=== PATIENT | female | born 1950 | race Caucasian/White ===

== ENCOUNTER → 2018-01-11 10:42 | Outpatient (CLI) | payer MEDICARE, SELFPAY ==
[2018-01-11 13:03] LABS: Cholesterol 195 mg/dL (200); High Density Lipoprotein 58 mg/dL; T4 Total, Thyroxin 14.6 ug/dL (4.8-13.9); Triglycerides 78 mg/dL; Very Low Density Lipoprotein 16 mg/dL (5-40)
[2018-01-13 14:44] LABS: HPV Reflexed? NOT INDICATED
--- OUTSIDE RECORDS SUMMARY | 2018-02-23 02:24 | XMS RPT_ITS ---
:1950 Author Organization [facility] Care Team Providers Name Role Phone MILVIA HERNANDEZ, DR. WARNER Attending Unavailable MILVIA HERNANDEZ, DR. WARNER Primary Care Unavailable Rosi Valadez Attending Unavailable Rosi Valadez Primary Care Unavailable Rosi Valadez Referring Unavailable PROBLEMS PROBLEMS DATE TYPE CONDITION / CODE ATTENDING STATUS SOURCE 01/12/2018 Unknown E03.9 - Rosi Valadez Active [place] Hypothyroidism, Community unspecified / Hospital E03.9(ICD-10) Repository 01/12/2018 Unknown Z12.4 - Encounter Rosi Valadez for screening for [facility] neoplasm of Repository cervix / Z12.4(ICD-10) PROCEDURES PROCEDURES No Procedure Records FoundRESULTS RESULTS LIPID PROFILE Collected: 01/11/2018 Status: F Source: [place] 10:46 AM [facility] REPOSITORY TYPE CODE TESTS RESULT OUT OF RANGE REFERENCE UNITS LAB L501.4900 200 mg/dL Normal CHOL 195 Result Comment: <200 mg/dL Desirable 200-240 mg/dL Borderline >240 mg/dL High Risk LAB L501.5000 mg/dL Normal TRIG 78 Result Comment: The drugs N-Acetylcysteine and Metamizole may falsely depress this assay. Serum Triglycerides Reference Interval Normal <150 mg/dL Borderline high 150 - 199 mg/dL High 200 - 499 mg/dL Very High > or = 500 mg/dL LAB L501.6400 mg/dL Normal HDL 58 Result Comment: The drugs N-Acetylcysteine and Metamizole may falsely depress this assay. Reference Range HDL <40 mg/dL Low HDL Cholesterol HDL >or= 60 mg/dL High HDL Cholesterol LAB L501.6500 0-130 mg/dL Normal LDL 121 LAB L501.6600 5-40 mg/dL Normal VLDL 16 Performed By: #### L500.4100, L501.9310, L501.9520 #### [facility] [address] [place], [address] T4 TOTAL, THYROXIN Collected: 01/11/2018 Status: F Source: [place] 10:46 AM [facility] REPOSITORY TYPE CODE TESTS RESULT OUT OF REFERENCE UNITS RANGE LAB L501.9310 4.8-13.9 ug/dL T4 High THYROXIN 14.6 Performed By: #### L500.4100, L501.9310, L501.9520 #### [facility] [address] [place], [address] THYROID STIM HORMONE Collected: 01/11/2018 Status: F Source: [place] (TSH) 10:46 AM [facility] REPOSITORY TYPE CODE TESTS RESULT OUT OF RANGE REFERENCE UNITS LAB L501.9520 0.358-3.74 uIU/mL Normal TSH 2.80 Performed By: #### L500.4100, L501.9310, L501.9520 #### [facility] [address] [place], [address] PAP I-G W/RFX HRHPV Collected: 01/11/2018 Status: F Source: [place] 10:00 AM [facility] REPOSITORY Order Comment: CYTOLOGY INFORMATION: - CLINICAL INFORMATION: POSTMENOPAUSAL - DATE LMP/MENOPAUSE: MENOPAUSE MENOPAUSE - COLLECTION VIAL: Thin Prep Vial - INDUSTRIAL METHODS CONSULTANT SOURCE: CERVICAL/ENDOCERVICAL - COLLECTION TECHNIQUE: BRUSH/SPATULA Specimen Comment: [id number] Specimen Comment: Source.............Cervix;Endocervix Specimen Comment: Other..............Post Menopausal Specimen Comment: No. of containers..01 ThinPrep Vial TYPE CODE TESTS RESULT OUT OF RANGE REFERENCE UNITS LAB L7400.0800 . Normal DIAGN Comment Result Comment: NEGATIVE FOR INTRAEPITHELIAL LESION AND MALIGNANCY. THIS SPECIMEN WAS RESCREENED PART OF OUR ERP ENGINEER PROGRAM. LAB L7400.0900 . Normal ADEQ Comment Result Comment: Satisfactory for evaluation. Endocervical component may not be distinguished in cases of atrophy. LAB L7400.1400 . Normal PERFORM Comment Result Comment: Garry Madrigal, Vacuum Cooker Operator (ASC) LAB L7400.1500 . Normal QC Comment REV Result Comment: Kari Raymond, Supervisory Vacuum Cooker Operator (ASC) LAB L7400.2575 . Normal TEST METHOD Comment Result Comment: This liquid based ThinPrep(R) pap test was screened with the use of an image guided system. LAB L7400.2600 . Normal . COMM LAB L7400.2700 . Normal PAPSMR Comment Result Comment: The Pap smear is a screening test designed to aid in the detection of premalignant and malignant conditions of the uterine cervix. It is not a diagnostic procedure and should not be used as the sole means of detecting cervical cancer. Both false-positive and false-negative reports do occur. LAB L7400.2800 . Normal HPV RFLX Comment Result Comment: The HPV DNA reflex criteria were not met with this specimen result therefore, no HPV testing was performed. Performed at: - [facility] [id number] Waterproofing Supervisor: Shila Cho MD, Phone: [phone] Performed By: #### L7400.0350 #### [facility] (refer to report for specific site) refer to report for address and phone number ALLERGIES ALLERGIES No Allergies Records FoundENCOUNTERS ENCOUNTERS ADMIT/DISCHARGE ACCOUNT NUMBER ADMITTING ENCOUNTER LOCATION SOURCE CLASS 01/19/2018 [id number] Ambulatory ABuilding:NX [facility] Repository 01/11/2018 [id number] Ambulatory [facility] ding:MFPLAB Repository PAYERS PAYERS ENCOUNTER GUARANTOR PAYER SUBSCRIBER SOURCE 01/19/2018 ASHLEY Mcleod Primary Insurance:SHAYAN Mcleod [facility] ANDERSONDOB: MEDICARE HMO AMEPolicy ANDERSONDOB: [facility] [id number] Number: [id number] Repository MAXIME MEBNDTJLEffective [address] Date:2018-01-19 [place] [address]~[facility] [id number] Name:PATRIC [id number]: 330 [email or web address] [address] FRED [place] 002-8656 : [phone]: [phone] (HP) (hp) [phone] (WP) 01/11/2018 ASHLEY Mcleod Primary Insurance:SHAYAN [id number] MCRPolicy Number: ROSADOB: [facility] BNDTJLEffedarion [id number] Date:[id number] BOX Repository [address]Hxb: [phone] ROSS [phone] (CH) [phone]: 01/11/2018 Secondary NOT GIVENUNK Dash Insurance:SELF PAY Community INSURANCEPolicy Number: Hospital Effective Repository Date:2018-01-11
== END ==
PROVIDERS: Family Provider Family Medicine; PCP Family Medicine; Referring Provider Family Medicine; Visit Provider Family Medicine
DX: E03.9 Hypothyroidism, unspecified (principal); Z12.4 Encounter for screening for malignant neoplasm of cervix
CPT/HCPCS: 36415; 80061; 84436; 84443; 88175; G0145

== ENCOUNTER → 2018-03-15 15:00 | Outpatient (CLI) | payer MEDICARE, SELFPAY ==
[2018-03-15 18:14] LABS: Vitamin D,25 Hydroxy 47.4 ng/mL (29.95-100.01)
== END ==
PROVIDERS: Family Provider Family Medicine; PCP Family Medicine; Visit Provider Family Medicine
DX: E55.9 Vitamin D deficiency, unspecified (principal)
CPT/HCPCS: 36415; 82306

== ENCOUNTER → 2018-05-04 09:52 | Outpatient (CLI) | payer MEDICARE, SELFPAY ==
--- NOTE | 2018-05-04 09:56 | RAD_ITS ---
STUDY: X-RAY - RIGHT HIP REASON FOR EXAM: Female, 67 years old. Pain TECHNIQUE: 3 views of the hip. COMPARISON: None. FINDINGS: Normal femoral head, neck, intertrochanteric region and visualized proximal femur. Normal acetabulum. There is moderate articular joint space narrowing. Normal visualized superior and inferior pubic rami and ischial tuberosities. Mild arthritic changes in the left hip. 2 the changes more severe in the right hip than the left. RAD/HIP, UNI W/ Pelvis 2-3 Views IMPRESSION: Degenerative changes of the hip. Electronically Signed: Jack Hilario MD at 10:10 EDT , Service support ,
== END ==
PROVIDERS: Family Provider Family Medicine; PCP Family Medicine; Referring Provider Family Medicine; Visit Provider Family Medicine
DX: M25.551 Pain in right hip (principal)
CPT/HCPCS: 73502

== ENCOUNTER 2018-05-23 15:00 | Outpatient (RCR) | payer MEDICARE, SELFPAY ==
--- NOTE | 2018-05-12 16:18 | HP.PTEVAL_ITS ---
Patient's Visit Information ASHLEY LEE is a 67 year old F referred to Physical Therapy by Jasiel Hernandez MD with a diagnosis of Right Hip Pain. Date of Evaluation: 05/12/18 Physical Therapist: Sirisha Lan DPT - Visit Plan Frequency: 2x /Week Duration: 4 Weeks Plan: Focus on HEP for LE and core s/s - Subjective Findings: Right hip pain for almost a year- jumped over a ditch after a run and when she landed it felt like it hurt a lot more but doesn't remember anything specific. Gradually gotten worse. Pain is located along anterior hip with tightness at the gluts at the end of the day. When going down the stairs she feels unstable sometimes when she is not expecting it. Average pain is 2/10. Worst: 6/10 Agg: going up stairs lifting, uphill running, twisting, carrying heavy weights. Best: 0/10 Eases: Aleve, laying down/sitting. A couple of min after she sits down she is painfree. Describes the pain as dull and achy unless a certain movement it can be sharp. No radiating pain- No N/T in the toes. No back problems. Active- runner- 20 min to 30 min 2-3x a week- stretching and light bearing (#8 weights, squats)- home work outs. New Balance shoes- does change shoes every 6 month- no orthotics or inserts. No MRI or injections- no anti-inflammatory. Sleep: not disturbed. PMHx: none Meds: lexipro - Objective Posture: FH, RS- can correct with verbal cues. Gait: no deviation noted. SLS: 10 sec then LOB and increased muscle activation of the whole leg. HR/TR: able. ROM: WFL except Ir of the right hip decreased by 50% compared to left. Strength: Core: fair minus, Hip: flexion: 4-/5, extn: 4/5, abd: 4/5, IR: 3/5, ER:4-/5, Knee: 5/5, ankle: 5/5. Special Test: ASTRID:positive, Impingment: positive, LLD: negative, Pelvic alignment: WFL - Goals Goal 1:: Patient will be I with HEP and progression Goal 2:: Patient will SLS for 30 sec without hip drop Goal Time Frame: 4-6 Weeks Goal 3:: Patient will maintain proper posture t/o tx session to demo increased core s/s Goal Time Frame: 4-6 Weeks Goal 4:: Patient will report 0/10 pain with all ADL's and recreational activites Goal Time Frame: 4-6 Weeks - Rehabilitation Potential Physical Therapy Diagnosis: Patient presents with hypomobility- she has decreased ROM, strength and muscular endurance leading to increased pain with ADL's Rehabilitation Potential: Fair - Anticipated Interventions Patient/Client Instruction: Educate patient on: Benefits of Fitness Program Therapeutic Exercise to Include: Strength training, Endurance training, Balance training, Agility training, Body mechanics, Postural training, Flexibilty training, Gait and locomotor training, Passive ROM, Active ROM, Dynamic Lumbar Stabilization For the Purpose of:: To improve muscle performance and motor function Thank you for the opportunity to evaluate your patient. For Medicare and Medicare HMO plans, please review the plan of care and approve it. It will need to be FAXED BACK to us at [phone] for Medicare purposes. For Medicare only, by signing this I certify the plan of care. Please let me know if there are questions or concerns regarding this plan of care. Physician Signature: Date:
--- NOTE | 2018-09-02 08:08 | HP.PT.NRP ---
HP - Discharge Summary (1) - Patient Information ASHLEY LEE was seen in my office for initial evaluation on 05/12/18. The following Plan of Care was established for this patient: Initial Frequency: 2x /Week Initial Duration: 4 Weeks - Anticipated Interventions Patient/Client Instruction: Educate patient on: Benefits of Fitness Program Therapeutic Exercise to Include: Strength training, Endurance training, Balance training, Agility training, Body mechanics, Postural training, Flexibilty training, Gait and locomotor training, Passive ROM, Active ROM, Dynamic Lumbar Stabilization For the Purpose of:: To improve muscle performance and motor function This patient was last seen in our office . Pertinent comments regarding their Physical therapy will appear below: Patient has not attended physical therapy in over 8 weeks- appropriate to be discharged and return to MD as needed. At this point I will be discontinuing this patient from physical therapy. I would be happy to see this patient again in the future if found appropriate by the physician. Thank you! Sirisha Lan DPT
== END 2018-05-23 19:00 | disposition home or self-care (01) ==
LOC: PT 15:00
PROVIDERS: Family Provider Family Medicine; PCP Family Medicine; Referring Provider Family Medicine; Visit Provider Family Medicine
DX: M16.11 Unilateral primary osteoarthritis, right hip (principal); M25.551 Pain in right hip
CPT/HCPCS: 97110; 97161

== ENCOUNTER → 2019-01-17 15:11 | Outpatient (CLI) | payer MEDICARE, SELFPAY ==
[2018-06-20 09:31] VITALS: BMI 20.5
[2019-01-17 17:57] LABS: T4 Total, Thyroxin 11.4 ug/dL (4.8-13.9); Thyroid Stim Hormone (TSH) 4.83 uIU/mL (0.358-3.74)
== END ==
PROVIDERS: Family Provider Family Medicine; PCP Family Medicine; Referring Provider Family Medicine; Visit Provider Family Medicine
DX: E03.9 Hypothyroidism, unspecified (principal)
CPT/HCPCS: 36415; 84436; 84443

== ENCOUNTER → 2019-03-10 14:56 | Outpatient (CLI) | payer MEDICARE, SELFPAY ==
[2018-06-20 09:31] VITALS: BMI 20.5
[2019-03-10 18:26] LABS: Thyroid Stim Hormone (TSH) 0.54 uIU/mL (0.358-3.74)
== END ==
PROVIDERS: PCP Family Medicine; Referring Provider Family Medicine; Visit Provider Family Medicine
DX: E03.9 Hypothyroidism, unspecified (principal)
CPT/HCPCS: 36415; 84443

== ENCOUNTER → 2019-04-17 11:17 | Outpatient (CLI) | payer MEDICARE, SELFPAY ==
[2018-06-20 09:31] VITALS: BMI 20.5
[2019-04-17 15:49] LABS: ALB/GLOB Ratio 1.5 RATIO (0.9-2.4); AST(SGOT) 26 U/L (15-37); Alanine Aminotransfer ALT/SGPT 33 U/L (13-56); Albumin, Serum 4.1 g/dL (3.2-5.0); Alkaline Phosphatase 135 U/L (45-117); Anion Gap 7 (5-15); BUN 15 mg/dL (7-18); BUN/Creat Ratio 18.2 RATIO (10-20); Calcium,Total 9.6 mg/dL (8.5-10.1); Chloride 105 mmol/L (98-107); Creatinine, Serum 0.82 mg/dL (0.55-1.02); EST Glomerular Filtration Rate 74 mL/min (>60); Est Glom Filt Rate - Afr Amer 89 mL/min (>60); Globulin 2.8 g/dL (2.2-4.2); Glucose 87 mg/dL (74-106); Potassium 4.1 mmol/L (3.5-5.1); Protein, Total 6.9 g/dL (6.4-8.2); Sodium Level 141 mmol/L (136-145)
[2019-04-17 16:28] LABS: Absolute Lymphocyte Count 1.46 X10^3/uL (0.83-4.51); Absolute Neutrophil Count 2.8 X10^3/uL (2.0-7.7); Basophil# 0.05 X10^3/uL; Eosinophil# 0.09 X10^3/uL; Eosinophils% 1.8 % (0-5); Hematocrit 45.3 % (37-47); Hemoglobin 14.3 g/dL (12.0-15.0); Lymphocyte # 1.46 X10^3/ul (4.0); Lymphocyte % 28.9 % (19-41); Mean Corp Hgb Conc 31.6 g/dL (32-36); Mean Corpuscular Hgb 31.2 pg (27.0-32.0); Mean Corpuscular Volume 98.9 fL (81-99); Mean Platelet Vol. 10.4 fl (6.2-12.0); Monocyte# 0.64 X10^3/uL; Monocyte% 12.6 % (0-10); NRBC Flagged by Analyzer 0 % (0-5); Neutrophil # 2.81 X10^3/uL (2.7-7.7); Neutrophil % 55.5 % (47-70); Platelet Count 274 K/mm3 (150-450); RBC Distribution Width CV 12.6 % (11.6-14.6); RBC Distribution Width SD 46.1 fl (35.1-43.9); Red Blood Count 4.58 M/mm3 (4.2-5.4); White Blood Count 5.1 K/mm3 (4.4-11.0)
== END ==
PROVIDERS: PCP Family Medicine; Referring Provider Family Medicine; Visit Provider Family Medicine
DX: Z01.818 Encounter for other preprocedural examination (principal)
CPT/HCPCS: 36415; 80053; 85025

== ENCOUNTER → 2020-05-07 09:50 | Outpatient (CLI) | payer MEDICARE, SELFPAY ==
[2018-06-20 09:31] VITALS: BMI 20.5
[2020-05-07 13:04] LABS: T4 Total, Thyroxin 14.8 ug/dL (4.8-13.9)
== END ==
PROVIDERS: PCP Family Medicine; Referring Provider Family Medicine; Visit Provider Family Medicine
DX: E03.9 Hypothyroidism, unspecified (principal)
CPT/HCPCS: 36415; 84436; 84443

== ENCOUNTER 2021-05-12 10:18 | Outpatient (CLI) | payer MEDICARE, SELFPAY ==
[2021-05-12 13:10] LABS: T4 Total, Thyroxin 16.7 ug/dL (4.8-13.9); Thyroid Stim Hormone (TSH) 0.58 uIU/mL (0.358-3.74)
== END 2021-05-12 23:59 | disposition home or self-care (01) ==
PROVIDERS: PCP Family Medicine; Visit Provider Family Medicine
DX: E03.9 Hypothyroidism, unspecified (principal)
CPT/HCPCS: 36415; 84436; 84443

== ENCOUNTER → 2021-09-23 | Outpatient (CLI) | payer MEDICARE, SELFPAY ==
--- NOTE | 2021-09-23 09:18 | RAD_ITS ---
STUDY: X-RAY - ESOPHAGUS (BARIUM SWALLOW) WITH FLUOROSCOPY REASON FOR EXAM: Female, 70 years old. DYSPHAGIA TECHNIQUE: 16 view(s) of the esophagus were obtained following swallowing of barium. FLUOROSCOPY TIME (if supplied): (31 seconds) minutes/seconds COMPARISON: None. FINDINGS: There is no demonstrated esophageal foreign body. There is no demonstrated stricture or mucosal abnormality. Normal gastroesophageal junction, without a demonstrated hiatal hernia. The patient ingested a 12 mm tablet of barium. The tablet is trapped at the gastroesophageal junction. There is atherosclerotic calcification of the aortic arch with tortuosity of the descending aorta. Normal visualized pulmonary parenchyma. Normal visualized osseous structures of the thorax. RAD/Esophagus Single Contrast IMPRESSION: The 12 mm tablet of barium is trapped at the gastroesophageal junction. Electronically Signed: Tulio Alvarenga MD at 15:41 EDT ,
== END | disposition home or self-care (01) ==
LOC: RAD 09:15
PROVIDERS: PCP Family Medicine; Referring Provider Internal Medicine Gastroenterology; Visit Provider Internal Medicine Gastroenterology
DX: R13.10 Dysphagia, unspecified (principal)
CPT/HCPCS: 74220

== ENCOUNTER → 2022-05-28 | Outpatient (CLI) | payer MEDICARE, SELFPAY ==
[2022-05-28 18:23] LABS: Anion Gap 5 (5-15); BUN 13 mg/dL (7-18); BUN/Creat Ratio 15.8 RATIO (10-20); Calcium,Total 9.5 mg/dL (8.5-10.1); Chloride 106 mmol/L (98-107); Cholesterol 211 mg/dL (200); Creatinine, Serum 0.82 mg/dL (0.55-1.02); EST Glomerular Filtration Rate 73 mL/min (>60); Est Glom Filt Rate - Afr Amer 88 mL/min (>60); Glucose 96 mg/dL (74-106); High Density Lipoprotein 90 mg/dL; Sodium Level 137 mmol/L (136-145); T4 Total, Thyroxin 14.1 ug/dL (4.8-13.9); Thyroid Stim Hormone (TSH) 0.84 uIU/mL (0.358-3.74); Triglycerides 75 mg/dL; Very Low Density Lipoprotein 15 mg/dL (5-40)
== END | disposition home or self-care (01) ==
LOC: MTLAB 13:46
PROVIDERS: PCP Family Medicine; Referring Provider Family Medicine; Visit Provider Family Medicine
DX: Z00.00 Encounter for general adult medical examination without abnormal findings (principal); E03.9 Hypothyroidism, unspecified
CPT/HCPCS: 36415; 80048; 80061; 84436; 84443

== ENCOUNTER → 2023-05-25 | Outpatient (CLI) | payer MEDICARE, SELFPAY ==
[2023-05-25 18:16] LABS: T4 Total, Thyroxin 13.7 ug/dL (4.8-13.9); Thyroid Stim Hormone (TSH) 0.33 uIU/mL (0.358-3.74)
== END | disposition home or self-care (01) ==
LOC: MFPLAB 15:20
PROVIDERS: PCP Family Medicine; Visit Provider Family Medicine
DX: E03.9 Hypothyroidism, unspecified (principal)
CPT/HCPCS: 36415; 84436; 84443

== ENCOUNTER 2023-07-18 08:38 | Emergency (ER) | payer MEDICARE, SELFPAY ==
[2023-07-18 08:39] VITALS: BP 127/51; PULSE 85; RESP 16; TEMP 36.3; O2SAT 97; BMI 20.9
[2023-07-18 09:50] VITALS: BP 124/72; PULSE 71; RESP 16; O2SAT 98
--- NOTE | 2023-07-18 09:57 | RAD_ITS ---
INDICATION: chest pain EXAMINATION/TECHNIQUE: X-RAY - XR Chest 1 View COMPARISON: No relevant prior comparison study available FINDINGS: LINES/DEVICES: None. LUNGS: No consolidation, edema or effusion. No pneumothorax. MEDIASTINUM AND CARDIOVASCULAR STRUCTURES: Cardiac silhouette not enlarged. Central airways and mediastinal contour are unremarkable. BONES AND SOFT TISSUES: Dextroscoliosis of the thoracolumbar spine. RAD/Chest 1 View (Portable) IMPRESSION: No radiographic evidence of acute cardiopulmonary disease. Electronically Signed: Adriel Covington MD at 11:23 EDT ,
--- NOTE | 2023-07-18 09:57 | EKG12_ITS ---
Test Reason : SYNCOPE Blood Pressure : / mmHG Vent. Rate : 077 BPM Atrial Rate : 077 BPM P-R Int : 146 ms QRS Dur : 078 ms QT Int : 376 ms P-R-T Axes : 060 060 051 degrees QTc Int : 425 ms Normal sinus rhythm Normal ECG Confirmed by Marcio Workman ([id number]), deputy editor in chief ABDIRAHMAN SNYDER ([id number]) on 07/19/2023 9:24:28 AM Referred By: AMOL Confirmed By:Marcio Workman
[2023-07-18 10:23] LABS: Absolute Lymphocyte Count 1.06 X10^3/uL (0.83-4.51); Absolute Neutrophil Count 4.6 X10^3/uL (2.0-7.7); Basophil# 0.06 X10^3/uL; Basophil% 0.9 % (0-1); Eosinophil# 0.03 X10^3/uL; Eosinophils% 0.5 % (0-5); Hematocrit 49.4 % (37-47); Hemoglobin 16.4 g/dL (12.0-15.0); Lymphocyte # 1.06 X10^3/ul (0.83-4.51); Lymphocyte % 16.4 % (19-41); Mean Corp Hgb Conc 33.2 g/dL (32-36); Mean Corpuscular Hgb 32.2 pg (27.0-32.0); Mean Corpuscular Volume 97.1 fL (81-99); Mean Platelet Vol. 9.4 fl (6.2-12.0); Monocyte# 0.68 X10^3/uL; Monocyte% 10.5 % (0-10); NRBC Flagged by Analyzer 0 % (0-5); Neutrophil # 4.62 X10^3/uL (2.7-7.7); Neutrophil % 71.4 % (47-70); Platelet Count 285 K/mm3 (150-450); RBC Distribution Width CV 12.8 % (11.6-14.6); RBC Distribution Width SD 46.2 fl (35.1-43.9); Red Blood Count 5.09 M/mm3 (4.2-5.4); White Blood Count 6.5 K/mm3 (4.4-11.0)
[2023-07-18 10:49] LABS: Anion Gap 5 (5-15); BUN 12 mg/dL (7-18); BUN/Creat Ratio 14.4 RATIO (10-20); Calcium,Total 9.8 mg/dL (8.5-10.1); Chloride 103 mmol/L (98-107); Creatinine, Serum 0.83 mg/dL (0.55-1.02); EST Glomerular Filtration Rate 72 mL/min (>60); Est Glom Filt Rate - Afr Amer 87 mL/min (>60); Estimated Creatinine Clearance 49.17 ml/min; Glucose 111 mg/dL (74-106); Potassium 3.6 mmol/L (3.5-5.1); Sodium Level 138 mmol/L (136-145); Thyroid Stim Hormone (TSH) 0.57 uIU/mL (0.358-3.74); Troponin-I HS 4 pg/mL (3.0-54.0)
--- NOTE | 2023-07-18 10:50 | EDS_ITS ---
HPI History of Present Illness Chief Complaint: Syncope Narrative Narrative: 72-year-old female presenting after an episode of syncope this morning. Patient states she was standing at her bathroom sink about putting her contact and she states I felt like I was about to she had a headache and then her whole body felt weak and she did not think she would have time to call anybody. She took 2 steps and fainted hitting her head on the ground. Patient is not a history of this. She is a runner but states she does not believe she is dehydrated. She did not have any chest pain or shortness of breath. She still has a minor headache on the left side of her head but this is where she hit. No lacerations or abrasions. She states the only medication she takes is Synthroid. [facility] Medical History Hypothyroid Home Medications ?Medication ?Instructions ?Recorded ?Last Taken ?Type levothyroxine 100 mcg tablet 100 mcg PO DAILY 07/18/23 Unknown History Allergy/AdvReac Type Severity Reaction Status Date / Time No Known Allergies Allergy Verified 07/18/23 08:40 Social History Smoking Status: Never smoker [facility] ED Constitutional Constitutional ED: Denies chills, fever(s) or sweats Eyes Eyes: Denies blurry vision or change in vision ENT ENT ED: Denies ear pain or sore throat Cardiovascular Cardiovascular: Reports other Details: Syncope/ ; Denies chest pain, palpitations or racing heartbeat Respiratory/Chest Respiratory/Chest: Denies cough, dyspnea or sputum Gastrointestinal Gastrointestinal: Denies abdominal pain, constipation, diarrhea, nausea or vomiting Genitourinary Genitourinary ED: Denies dysuria, hematuria or urinary frequency Musculoskeletal Musculoskeletal: Denies arthralgias, myalgias or neck pain Integumentary Denies abscess, Abrasions or rash Neurologic Neurologic: Reports headache(s); Denies paresthesias or weakness Psychiatric Psychiatric: Denies anxiety, depression, suicidal ideation or suicidal thoughts Endocrine Endocrinology: Denies polydipsia or polyuria EXAM Physical Exam Const Vital Signs: 07/18/23 08:39 07/18/23 08:54 07/18/23 09:50 Temperature 97.4 F L Temperature Source Temporal Pulse Rate 85 71 Pulse Rate [Lying] Pulse Rate [Sitting (for 1 minute prior to obtaining)] Pulse Rate [Standing (for 1 minute prior to obtaining)] Respiratory Rate 16 16 Respiratory Pattern Normal Blood Pressure 127/51 H 124/72 H Blood Pressure [Lying] Blood Pressure [Sitting (for 1 minute prior to obtaining)] Blood Pressure [Standing (for 1 minute prior to obtaining)] Blood Pressure Mean 76 89 Blood Pressure Mean [Lying] Blood Pressure Mean [Sitting (for 1 minute prior to obtaining)] Blood Pressure Mean [Standing (for 1 minute prior to obtaining)] Pulse Ox 97 98 Oxygen Delivery Method Room Air Room Air 07/18/23 10:10 07/18/23 11:15 07/18/23 11:20 Temperature Temperature Source Pulse Rate Pulse Rate [Lying] 79 Pulse Rate [Sitting (for 1 minute prior to obtaining)] 78 Pulse Rate [Standing (for 1 minute prior to obtaining)] 92 Respiratory Rate 20 H Respiratory Pattern Blood Pressure Blood Pressure [Lying] 122/56 H Blood Pressure [Sitting (for 1 minute prior to obtaining)] 125/70 H Blood Pressure [Standing (for 1 minute prior to obtaining)] 120/81 H Blood Pressure Mean Blood Pressure Mean [Lying] 78 Blood Pressure Mean [Sitting (for 1 minute prior to obtaining)] 88 Blood Pressure Mean [Standing (for 1 minute prior to obtaining)] 94 Pulse Ox 96 Oxygen Delivery Method Room Air Room Air 07/18/23 12:00 Temperature Temperature Source Pulse Rate 76 Pulse Rate [Lying] Pulse Rate [Sitting (for 1 minute prior to obtaining)] Pulse Rate [Standing (for 1 minute prior to obtaining)] Respiratory Rate 35 H Respiratory Pattern Blood Pressure 114/66 Blood Pressure [Lying] Blood Pressure [Sitting (for 1 minute prior to obtaining)] Blood Pressure [Standing (for 1 minute prior to obtaining)] Blood Pressure Mean 82 Blood Pressure Mean [Lying] Blood Pressure Mean [Sitting (for 1 minute prior to obtaining)] Blood Pressure Mean [Standing (for 1 minute prior to obtaining)] Pulse Ox 96 Oxygen Delivery Method Room Air Positive well nourished General Appearance ED: NAD; Negative for pallor HEENT Reports moist mucous membranes Eyes PERRL and EOMs intact bilaterally General Eye ED: Negative for pale conjunctiva Neck no lymphadenopathy Chest Wall inspection of chest normal Resp normal respiratory effort and clear to auscultation bilaterally Auscultation: Negative for rales, rhonchi or wheezes Cardio regular rate and regular rhythm GI normal to inspection, nondistended, normoactive bowel sounds Extremity normal to inspection Neuro oriented x3 and CN's II-XII intact bilaterally Psych mental status grossly normal Skin no rashes or lesions noted General Skin Exam: Negative for jaundice or pallor MDM MDM MDM Narrative Medical decision making narrative: Patient presenting after an episode of syncope. She states it started with a headache and then she felt like I am going to . Differential includes near syncope, syncope, subarachnoid hemorrhage, epidural hemorrhage, subdural hemorrhage, skull fracture, dehydration, anemia, electrolyte abnormalities, dysrhythmia, ACS. Orthostatic vital signs will be obtained. CBC to assess white blood cell count, hemoglobin, platelets. BMP to assess renal function, electrolytes, glucose. High-sensitivity troponin and EKG to assess for ischemia/dysrhythmia. TSH 2 assess thyroid since she is on Synthroid. CT brain will be obtained. CBC shows normal white blood cell count 6.5. Hemoglobin 16.4. Platelets are normal at 295. Renal function electrolytes normal. Patient's troponin is 4. TSH 0.57 and within the limits. EKG sinus rhythm at 77 bpm without sign of ischemic change or dysrhythmia on my interpretation. Chest x-ray my interpretation shows no acute cardiopulmonary process. The radiologist interprets this and agrees. CT brain was obtained and is also negative for acute intracranial process. Patient's orthostatic vital signs are normal. Patient feels better. At this point I feel she is stable for discharge home, patient based on [place] syncope rule. Patient minimal to this. Discharged stable condition. Impression: 1. Syncope 2. Closed head injury 3. Headache Lab Data Attestation: I reviewed the patient's lab results. Labs: Laboratory Results - last 24 hr 07/18/23 10:15 WBC 6.5 RBC 5.09 Hgb 16.4 H Hct 49.4 H MCV 97.1 MCH 32.2 H MCHC 33.2 RDW Std Deviation 46.2 H RDW Coeff of Sarai 12.8 Plt Count 285 MPV 9.4 Immature Gran % (Auto) 0.300 Neut % (Auto) 71.4 H Lymph % (Auto) 16.4 L Benson % (Auto) 10.5 H Eos % (Auto) 0.5 Baso % (Auto) 0.9 Absolute Neuts (auto) 4.6 Absolute Lymphs (auto) 1.06 Nucleated RBC % 0 Sodium 138 Potassium 3.6 Chloride 103 Carbon Dioxide 30.0 Anion Gap 5 BUN 12 Creatinine 0.83 Estim Creat Clear Calc 49.17 Est GFR (MDRD) Af Amer 87 Est GFR (MDRD) Non-Af 72 BUN/Creatinine Ratio 14.4 Glucose 111 H Calcium 9.8 Troponin I High Sens 4 TSH 0.57 Radiography Diagnostic Testing: Clinical Impression(s) from Imaging Studies Chest X-Ray 07/18/23 09:57 IMPRESSION: No radiographic evidence of acute cardiopulmonary disease. Electronically Signed: Adriel Covington MD at 11:23 EDT , Brain CT 07/18/23 10:50 IMPRESSION: No acute intracranial process. Electronically Signed: Adriel Covington MD at 11:21 EDT , ADDENDUM: 07/18/23 1152 IMPRESSION: No acute intracranial process. Electronically Signed: Adriel Covington MD at 11:21 EDT , Discharge Plan Triage Chief Complaint: Syncope ED Provider: Surinder Zhang Dx/Rx/DC Orders Instructions: ED Fainting, Uncertain Cause Prescriptions: No Action levothyroxine 100 mcg tablet 100 mcg PO DAILY Primary Care Provider: Rosi Valadez Referrals: Rosi Valadez MD [Primary Care Provider] - Print Language: Maori Disposition Disposition: Home, Self Care Discharge Date/Time: 07/18/23 13:03
--- NOTE | 2023-07-18 10:50 | CT_ITS ---
INDICATION: FALL EXAMINATION: CT BRAIN - CT Head or Brain W/O Contrast Injection TECHNIQUE: Multiple axial images were obtained of the head without intravenous contrast. The protocol utilizes one or more of the following dose reduction techniques: automated exposure control, adjustment of mA and/or kV according to patient size,and/or use of iterative reconstruction technique. IV Contrast dosage and agent: None. RADIATION DOSAGE (If Supplied By Facility): CTDIvol = ( 44.99 ) mGy, DLP = ( 812.98 ) mGycm COMPARISON: No relevant prior comparison study available FINDINGS: BRAIN PARENCHYMA: No intra- or extra-axial hemorrhage. No evidence of acute infarct. No intracranial mass or mass effect. There is preservation of the lyle/white matter interface. Posterior fossa structures are unremarkable. CSF SPACES: Appropriate for age. No hydrocephalus. Basal cisterns are patent. CALVARIUM, SKULL BASE, PARANASAL SINUSES AND MASTOID AIR CELLS: Clear. No discrete lytic or blastic abnormalities. ORBITS: Both globes, extraocular muscles, optic nerves and retrobulbar fat appear unremarkable. CT/Brain/Head without Contrast IMPRESSION: No acute intracranial process. Electronically Signed: Adriel Covington MD at 11:21 EDT ,
[2023-07-18 11:15] VITALS: BP 120/81; BP 122/56; BP 125/70; PULSE 78; PULSE 79; PULSE 92
[2023-07-18 11:20] VITALS: RESP 20; O2SAT 96
[2023-07-18 12:00] VITALS: BP 114/66; PULSE 76; RESP 35; O2SAT 96
== END 2023-07-18 13:03 | disposition home or self-care (01) ==
PROVIDERS: Emergency Provider Student in an Organized Health Care Education/Training Program; PCP Family Medicine; Visit Provider Student in an Organized Health Care Education/Training Program
DX: R55 Syncope and collapse (principal); S09.90XA Unspecified injury of head, initial encounter; E03.9 Hypothyroidism, unspecified; Z79.890 Hormone replacement therapy; W18.39XA Other fall on same level, initial encounter; Y93.E8 Activity, other personal hygiene; Y92.89 Other specified places as the place of occurrence of the external cause
CPT/HCPCS: 70450; 71045; 80048; 84443; 84484; 85025; 93005; 99284; A4216

== ENCOUNTER 2023-08-02 10:05 | Emergency (ER) | payer MEDICARE, SELFPAY ==
[2023-08-02 10:06] VITALS: BP 106/55; PULSE 89; RESP 18; TEMP 36.1; O2SAT 99; BMI 21.4
--- NOTE | 2023-08-02 10:26 | EDS_ITS ---
HPI History of Present Illness Chief Complaint: Weakness Informant: patient Onset/Context/Timing Onset: Days Context: Gradual Onset Timing: Intermittent Current Severity: Mild Maximum Severity: Mild Narrative Narrative: 72-year-old female past medical history of Raynaud's and low blood sugar. Prior hip replacement. No prior abdominal surgeries. She is about 10 days ago she passed out came to the ER diagnosed with vasovagal syncope. Since she has had some muscle twitches. Was seen by her primary care physician recently was treated for possible sinusitis was on 10 days of Augmentin. Says he just feels weak all over the last 5 days. Denies vomiting. Denies diarrhea or melena. Denies any dysuria, urgency or frequency. No significant weight change. No significant abdominal pain. No chest pain or shortness of breath. Prior similar symptoms: No Recent Illness/Hospitalization: No PFSH PFSH Medical History Hypothyroid Home Medications ?Medication ?Instructions ?Recorded ?Last Taken ?Type levothyroxine 100 mcg tablet 100 mcg PO DAILY 07/18/23 Unknown History Allergy/AdvReac Type Severity Reaction Status Date / Time No Known Allergies Allergy Verified 08/02/23 10:18 Surgical History History of hip replacement Social History Smoking Status: Never smoker ROS ROS ED ROS Narrative Generalized weakness. Denies vomiting, diarrhea or fever. No dysuria. No melena. Review of Systems ROS Unobtainable: Denies due to encephalopathy Constitutional Constitutional ED: Denies chills or fever(s) Eyes Eyes: Denies blurry vision ENT ENT ED: Denies ear pain Cardiovascular Cardiovascular: Denies chest pain Respiratory/Chest Respiratory/Chest: Denies cough or dyspnea Gastrointestinal Gastrointestinal: Denies abdominal pain, constipation, diarrhea, melena, nausea or vomiting Genitourinary Genitourinary ED: Denies dysuria or hematuria Musculoskeletal Musculoskeletal: Denies arthralgias or back pain Integumentary Denies abscess Neurologic Neurologic: Denies headache(s) Psychiatric Psychiatric: Denies anxiety Endocrine Endocrinology: Denies cold intolerance Hematologic/Lymphatic Hematologic/Lymphatic: Reports none Allergic/Immunologic Allergic/Immunologic ED: Denies mouth swelling, tongue swelling or urticaria EXAM Physical Exam Narrative Exam Narrative: Well-appearing 72-year-old female. Vital signs stable afebrile. Pulse ox 99% on room air no hypoxia. H EENT exam unremarkable. Moist with membranes. Normal speech. Neck nontender no lymphadenopathy. Lungs clear to auscultation bilaterally. Heart regular rate and rhythm rate about 90 no murmur. Chest wall and ribs nontender. Abdomen soft nontender. Moving all 4 extremities. 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 Dorsi plantarflexion intact. Nontender no edema. Back nontender. Neurologically she is awake and alert with no focal motor deficits. Answering questions following commands. Const Vital Signs: 08/02/23 10:06 08/02/23 10:18 Temperature 97 F L Temperature Source Temporal Pulse Rate 89 Respiratory Rate 18 Respiratory Pattern Normal Blood Pressure 106/55 L Blood Pressure Mean 72 Pulse Ox 99 Oxygen Delivery Method Room Air Positive well nourished and well developed; Negative for obese, cachectic, contractures or unkempt General Appearance ED: well developed and NAD; Negative for unkempt, cachectic, contractures, cyanotic, diaphoretic or pallor Nutritional Appearance: Negative for cachectic or obese HEENT Reports moist mucous membranes; Denies dry mucous membranes Negative for trauma or tenderness Mouth ED: No dry mucous membranes Mouth: No dry mucous membranes Eyes PERRL and EOMs intact bilaterally General Eye ED: Negative for pale conjunctiva, scleral icterus or other Neck no lymphadenopathy, supple and no JVD General: Negative for tenderness Lymph Lymphatic: Negative for other Chest Wall inspection of chest normal and palpation of chest normal Chest: Negative for other Resp normal respiratory effort and clear to auscultation bilaterally Effort and Inspection: Negative for retractions Auscultation: Negative for rales, rhonchi, wheezes or diminished lung sounds Cardio regular rate, regular rhythm, S1 normal heart sound, S2 normal heart sound and no murmurs Palpation: Negative for palpable S3 or palpable S4 Rate: Negative for bradycardia or tachycardic Rhythm: Negative for abnormal rhythm GI normal to inspection, nondistended, normoactive bowel sounds, non-tender, non- distended and no masses Inspection: Negative for abdominal distention Auscultation: normoactive bowel sounds Palpation: soft; Negative for tender, guarding, mass or rebound tenderness present Bladder / Kidney Exam: No other Back/Spine no CVA tenderness General Back: Negative for CVA tenderness Cervical Spine: Negative for cervical spine tenderness Thoracic Spine / Upper Back: Negative for thoracic spinal tenderness or paraspinal muscle tenderness Lumbar Spine / Lower Back: Negative for lumbar spinal tenderness Extremity normal to inspection General Extremety ED: Negative for edema or tenderness General Extremity: Negative for edema Neuro oriented x3 and CN's II-XII intact bilaterally Sensorium / Orientation: alert; Negative for orientation impaired, lethargic or stuporous Motor Exam: strength 5/5 throughout; Negative for general weakness or strength abnormal Psych mental status grossly normal Appearance: Negative for unkempt Attitude: No agitated Mood & Affect: Negative for depressed or tearful Skin no rashes or lesions noted, no wounds and skin turgor normal General Skin Exam: elasticity normal; Negative for jaundice or pallor Lesions: No lesion noted Rashes: No rashes noted Trauma: Negative for abrasion Wounds: Negative for wounds noted MDM MDM MDM Narrative Medical decision making narrative: 72-year-old female complain generalized weakness. She is completely normal exam. Abdomen is completely nontender. She has normal vital signs. Will check screening labs and EKG. She does have a history of hypothyroidism we will check a TSH. We may not find anything with the labs because her exam is normal otherwise she will be discharged home with outpatient follow-up. Repeat exam patient doing well 11:37 AM. We went over test results. She has generalized weakness with a normal exam and normal labs and EKG. She will be discharged home outpatient follow-up with primary care physician. History & Record Review Discussion w/independent historian: Patient Additional record(s) reviewed:: Prior inpatient record, Prior outpatient record, Prior ED visit and Prior labs Lab Data Attestation: I reviewed the patient's lab results. Lab results narrative: CBC shows a white count 8. H&H 14 and 45. Platelets 273. Chemistries normal gap 8. Normal BUN and creatinine. Glucose 123. Liver enzymes normal. TSH normal at 0.9. Labs: Laboratory Results - last 24 hr 08/02/23 08/02/23 10:17 10:21 WBC 8.2 RBC 4.74 Hgb 14.9 Hct 45.7 MCV 96.4 MCH 31.4 MCHC 32.6 RDW Std Deviation 45.4 H RDW Coeff of Sarai 12.7 Plt Count 273 MPV 9.6 Immature Gran % (Auto) 0.500 Neut % (Auto) 73.6 H Lymph % (Auto) 14.6 L Granite % (Auto) 10.2 H Eos % (Auto) 0.2 Baso % (Auto) 0.9 Absolute Neuts (auto) 6.0 Absolute Lymphs (auto) 1.19 Nucleated RBC % 0 Sodium 137 Potassium 3.5 Chloride 103 Carbon Dioxide 26.0 Anion Gap 8 BUN 12 Creatinine 0.82 Estim Creat Clear Calc 47.48 Est GFR (MDRD) Af Amer 88 Est GFR (MDRD) Non-Af 73 BUN/Creatinine Ratio 14.7 Glucose 123 H Calcium 9.5 Total Bilirubin 0.60 AST 20 ALT 25 Alkaline Phosphatase 120 H Total Protein 7.1 Albumin 4.1 Globulin 3.0 Albumin/Globulin Ratio 1.4 TSH 0.90 POC Glucose 114 H Rhythm Strip Rhythm Strip: Sinus Rhythm Rate: 71 Ectopy: None EKG Initial EKG: Attestation: I personally reviewed and interpreted this EKG as follows: Interpretation: Sinus Rhythm and No Acute Injury Pattern Comments: Normal sinus rhythm rate of 71 no acute signs of KS, ischemia or dysrhythmia. Unchanged from an EKG from July 17. Prior EKG tracings: available for review Prior: Unchanged Discharge Plan Triage Chief Complaint: Weakness ED Provider: Nader Willingham Dx/Rx/DC Orders Clinical Impression: Generalized weakness Instructions: ED Weakness (Uncertain Cause) Prescriptions: No Action levothyroxine 100 mcg tablet 100 mcg PO DAILY Primary Care Provider: Rosi Valadez Referrals: Rosi Valadez MD [Primary Care Provider] - 1 Week if not improving Activity Restrictions/Additional Instructions: Your labs, EKG and exam are all unremarkable. Follow-up with primary care physician if not feeling better. Print Language: [place] Disposition Disposition: Home, Self Care
--- NOTE | 2023-08-02 10:27 | EKG12_ITS ---
Test Reason : WEAKNESS Blood Pressure : / mmHG Vent. Rate : 071 BPM Atrial Rate : 071 BPM P-R Int : 148 ms QRS Dur : 080 ms QT Int : 388 ms P-R-T Axes : 049 057 058 degrees QTc Int : 421 ms Normal sinus rhythm Normal ECG Confirmed by NATHALIE MONTEMAYOR, JEREMY ([id number]), city editor SHMUEL GEORGE ([id number]) on 08/03/2023 11:22:53 AM Referred By: Confirmed By:JEREMY ZELAYA MD
[2023-08-02 10:31] LABS: Absolute Lymphocyte Count 1.19 X10^3/uL (0.83-4.51); Basophil# 0.07 X10^3/uL; Basophil% 0.9 % (0-1); Eosinophil# 0.02 X10^3/uL; Eosinophils% 0.2 % (0-5); Hematocrit 45.7 % (37-47); Hemoglobin 14.9 g/dL (12.0-15.0); Lymphocyte # 1.19 X10^3/ul (0.83-4.51); Lymphocyte % 14.6 % (19-41); Mean Corp Hgb Conc 32.6 g/dL (32-36); Mean Corpuscular Hgb 31.4 pg (27.0-32.0); Mean Corpuscular Volume 96.4 fL (81-99); Mean Platelet Vol. 9.6 fl (6.2-12.0); Monocyte# 0.83 X10^3/uL; Monocyte% 10.2 % (0-10); NRBC Flagged by Analyzer 0 % (0-5); Neutrophil # 6.01 X10^3/uL (2.7-7.7); Neutrophil % 73.6 % (47-70); Platelet Count 273 K/mm3 (150-450); RBC Distribution Width CV 12.7 % (11.6-14.6); RBC Distribution Width SD 45.4 fl (35.1-43.9); Red Blood Count 4.74 M/mm3 (4.2-5.4); White Blood Count 8.2 K/mm3 (4.4-11.0)
[2023-08-02 10:45] LABS: Bedside Glucose 114 mg/dL (74-106)
[2023-08-02 11:34] LABS: ALB/GLOB Ratio 1.4 RATIO (0.9-2.4); AST(SGOT) 20 U/L (15-37); Alanine Aminotransfer ALT/SGPT 25 U/L (13-56); Albumin, Serum 4.1 g/dL (3.2-5.0); Alkaline Phosphatase 120 U/L (45-117); Anion Gap 8 (5-15); BUN 12 mg/dL (7-18); BUN/Creat Ratio 14.7 RATIO (10-20); Calcium,Total 9.5 mg/dL (8.5-10.1); Chloride 103 mmol/L (98-107); Creatinine, Serum 0.82 mg/dL (0.55-1.02); EST Glomerular Filtration Rate 73 mL/min (>60); Est Glom Filt Rate - Afr Amer 88 mL/min (>60); Estimated Creatinine Clearance 47.48 ml/min; Glucose 123 mg/dL (74-106); Potassium 3.5 mmol/L (3.5-5.1); Protein, Total 7.1 g/dL (6.4-8.2); Sodium Level 137 mmol/L (136-145)
[2023-08-02 11:50] VITALS: BP 117/71; PULSE 68; RESP 15; TEMP 36.1; O2SAT 98
== END 2023-08-02 11:51 | disposition home or self-care (01) ==
PROVIDERS: Emergency Provider Emergency Medicine; PCP Family Medicine; Visit Provider Emergency Medicine
DX: R53.1 Weakness (principal); R55 Syncope and collapse; E03.9 Hypothyroidism, unspecified
CPT/HCPCS: 80053; 82962; 84443; 85025; 93005; 99283; A4216

== ENCOUNTER → 2023-08-03 | Outpatient (CLI) | payer MEDICARE, SELFPAY ==
[2023-08-03 15:37] LABS: Erythrocyte Sedimentation Rate 4 mm/hr (0-30)
[2023-08-03 16:09] LABS: PTHIN 54.3 pg/mL (18.4-80.1)
[2023-08-03 16:12] LABS: Vitamin B12 804 pg/mL (211-911)
[2023-08-03 16:18] LABS: T4 Total, Thyroxin 15.7 ug/dL (4.8-13.9); Thyroid Stim Hormone (TSH) 0.86 uIU/mL (0.358-3.74)
[2023-08-03 22:45] LABS: ALB/GLOB Ratio 1.4 RATIO (0.9-2.4); AST(SGOT) 21 U/L (15-37); Alanine Aminotransfer ALT/SGPT 28 U/L (13-56); Albumin, Serum 4.1 g/dL (3.2-5.0); Alkaline Phosphatase 112 U/L (45-117); Anion Gap 8 (5-15); BUN 11 mg/dL (7-18); BUN/Creat Ratio 14.9 RATIO (10-20); CRP < 2.90 mg/L (0.0-3.0); Calcium,Total 9.4 mg/dL (8.5-10.1); Chloride 104 mmol/L (98-107); Creatinine, Serum 0.74 mg/dL (0.55-1.02); EST Glomerular Filtration Rate 82 mL/min (>60); Est Glom Filt Rate - Afr Amer 99 mL/min (>60); Ferritin 29 ng/mL (8-252); Globulin 2.9 g/dL (2.2-4.2); Glucose 115 mg/dL (74-106); Magnesium 2.7 mg/dL (1.6-2.6); Potassium 3.7 mmol/L (3.5-5.1); Sodium Level 137 mmol/L (136-145)
[2023-08-05 14:11] LABS: ANTINUCLEAR ANTIBODIES DIRECT Negative (Negative)
[2023-08-05 15:12] LABS: Deamidated Gliadin IgA 9 units (0-19); Deamidated Gliadin IgG 5 units (0-19); Endomysial Antibody IgA Negative (Negative); Immunoglobulin A 128 mg/dL (64-422); PROEL- A/G Ratio 1.6 (0.7-1.7); PROEL- Alpha-1 Globulin 0.2 g/dL (0.0-0.4); PROEL- Alpha-2 Globulin 0.6 g/dL (0.4-1.0); PROEL- Beta Globulin 0.9 g/dL (0.7-1.3); PROEL- Gamma Globulin 0.7 g/dL (0.4-1.8); PROEL- Globulin, Total 2.5 g/dL (2.2-3.9); PROEL- TOTAL PROTEIN 6.5 g/dL (6.0-8.5); PROEL-M-Spike Not Observed g/dL (Not Observed); t-Transglutaminase IgA <2 U/mL (0-3)
== END | disposition home or self-care (01) ==
LOC: MFPLAB 11:43
PROVIDERS: PCP Family Medicine; Visit Provider Family Medicine
DX: R10.13 Epigastric pain (principal); R25.3 Fasciculation; E03.9 Hypothyroidism, unspecified
CPT/HCPCS: 36415; 80053; 82607; 82728; 82746; 82784; 83516; 83735; 83970; 84165; 84436; 84443; 85652; 86038; 86140; 86255

== ENCOUNTER 2023-09-27 17:46 | Emergency (ER) | payer MEDICARE, SELFPAY ==
[2023-09-27 17:47] VITALS: BP 121/69; PULSE 92; RESP 16; TEMP 36.1; O2SAT 95; BMI 20.2
[2023-09-27 18:14] LABS: Absolute Lymphocyte Count 1.33 X10^3/uL (0.83-4.51); Absolute Neutrophil Count 4.5 X10^3/uL (2.0-7.7); Basophil# 0.05 X10^3/uL; Basophil% 0.8 % (0-1); Eosinophil# 0.08 X10^3/uL; Eosinophils% 1.2 % (0-5); Hematocrit 45.1 % (37-47); Hemoglobin 14.7 g/dL (12.0-15.0); Lymphocyte # 1.33 X10^3/ul (0.83-4.51); Mean Corp Hgb Conc 32.6 g/dL (32-36); Mean Corpuscular Hgb 31.7 pg (27.0-32.0); Mean Corpuscular Volume 97.2 fL (81-99); Mean Platelet Vol. 10.1 fl (6.2-12.0); Monocyte# 0.63 X10^3/uL; Monocyte% 9.5 % (0-10); NRBC Flagged by Analyzer 0 % (0-5); Neutrophil # 4.54 X10^3/uL (2.7-7.7); Neutrophil % 68.3 % (47-70); Platelet Count 251 K/mm3 (150-450); RBC Distribution Width SD 46.5 fl (35.1-43.9); Red Blood Count 4.64 M/mm3 (4.2-5.4); White Blood Count 6.6 K/mm3 (4.4-11.0)
[2023-09-27 18:45] LABS: ALB/GLOB Ratio 1.2 RATIO (0.9-2.4); AST(SGOT) 16 U/L (15-37); Alanine Aminotransfer ALT/SGPT 30 U/L (13-56); Albumin, Serum 3.7 g/dL (3.2-5.0); Alkaline Phosphatase 149 U/L (45-117); Anion Gap 4 (5-15); BUN 17 mg/dL (7-18); BUN/Creat Ratio 17.3 RATIO (10-20); Calcium,Total 9.2 mg/dL (8.5-10.1); Chloride 105 mmol/L (98-107); Creatinine, Serum 0.98 mg/dL (0.55-1.02); EST Glomerular Filtration Rate 59 mL/min (>60); Est Glom Filt Rate - Afr Amer 72 mL/min (>60); Estimated Creatinine Clearance 41.04 ml/min; Globulin 3.2 g/dL (2.2-4.2); Glucose 129 mg/dL (74-106); Potassium 3.6 mmol/L (3.5-5.1); Protein, Total 6.9 g/dL (6.4-8.2); Sodium Level 140 mmol/L (136-145)
== END 2023-09-27 18:44 | disposition left against medical advice (07) ==
LOC: ED 18:50
PROVIDERS: PCP Family Medicine
DX: Z53.21 Procedure and treatment not carried out due to patient leaving prior to being seen by health care provider (principal)
CPT/HCPCS: 80053; 85025

== ENCOUNTER → 2024-10-06 | Outpatient (CLI) | payer MEDICARE, SELFPAY ==
--- NOTE | 2024-10-06 11:25 | RAD_ITS ---
EXAM: Two-view AP and lateral left tibia and fibula CLINICAL HISTORY: Mid leg injury COMPARISON: None. TECHNIQUE: Two-view AP and lateral left tibia and fibula RAD/Tibia & Fibula 2 Views IMPRESSION: No radiopaque foreign body is seen. Limited imaging of the left knee shows mild degenerative changes. No knee join t effusion is seen. No fracture, dislocation, or other significant osseous change is seen. Reading Location: [place] [id number]
== END | disposition home or self-care (01) ==
DX: S89.90XA Unspecified injury of unspecified lower leg, initial encounter (principal)
CPT/HCPCS: 73590